=== PATIENT | female | born 1975 | race Hispanic/Latino ===

== ENCOUNTER 2020-02-26 17:28 | Inpatient (IN) | payer SELFPAY ==
[~2020-02-26] VITALS: Ht 162.6 cm; Wt 83.5 kg
[2020-02-26 18:40] LABS: RED BLOOD CELL COUNT(AUTO) 3.93 MIL/uL (4.00-5.50); WHITE BLOOD COUNT (AUTO) 8.6 K/uL (4.8-10.8)
[2020-02-26 18:41] LABS: BASOPHILS % (AUTO) 0.8 % (0.0-5.0); HEMATOCRIT 35.8 % (36-48); LYMPHOCYTES % (AUTO) 21.9 % (21.0-51.0); MEAN CORPUSCULAR HEMOGLOBIN 29.3 pg (27.0-33.0); MEAN CORPUSCULAR HGB CONC 32.1 g/dL (32.0-36.0); MEAN CORPUSCULAR VOLUME 91.1 fL (79-99); MONOCYTES % (AUTO) 8.7 % (3.0-13.0); NEUTROPHILS % (AUTO) 61.4 % (40.0-77.0); PLATELET COUNT (AUTO) 515 K/uL (130-400); RED CELL DISTRIBUTION WIDTH 14.5 % (11.0-15.5)
[2020-02-26 18:49] LABS: APPEARANCE,URINE CLOUDY (CLEAR); BILIRUBIN,URINE SMALL (NEGATIVE); COLOR,URINE RED (YELLOW); GLUCOSE, URINE (UA) NEGATIVE (NEGATIVE); KETONES,URINE NEGATIVE (NEGATIVE); LEUKOCYTE ESTERASE ,URINE MODERATE (NEGATIVE); NITRATE,URINE POSITIVE (NEGATIVE); OCCULT BLOOD,URINE LARGE (NEGATIVE); PH,URINE 6.5 (5.0-8.0); PROTEIN,URINE 100 mg/dL (NEGATIVE); UROBILINOGEN,URINE 0.2 mg/dL (0.2-1.0)
[2020-02-26 19:01] LABS: RBC,URINE TNTC /HPF (0-1)
[2020-02-26 19:03] LABS: BACTERIA,URINE Rare /HPF (None Seen); SQUAMOUS EPITHELIAL CELL,UR Rare /HPF (0-2)
[2020-02-26 19:06] LABS: AMPHET/METH SCREEN,URINE NEGATIVE (NEGATIVE); BARBITURATE SCREEN, URINE NEGATIVE (NEGATIVE); BENZODIAZEPINES SCREEN,URINE POSITIVE (NEGATIVE); CANNABINOID SCREEN,URINE NEGATIVE (NEGATIVE); COCAINE SCREEN,URINE NEGATIVE (NEGATIVE); OPIATE SCREEN,URINE NEGATIVE (NEGATIVE); PHENCYCLIDINE SCREEN,URINE NEGATIVE (NEGATIVE)
[2020-02-26 19:06] LABS: ALCOHOL, BLOOD < 3 mg/dL (0-10); AMMONIA 19 umol/L (11-32); INR 0.94 (0.85-1.15); PARTIAL THROMBOPLASTIN TIME 29.2 SEC (26.3-35.5); PROTHROMBIN TIME 10.2 SEC (9.6-11.6)
[2020-02-26 19:08] LABS: ACETAMINOPHEN < 1 mcg/mL (10-30); SALICYLATE < 2.8 mg/dL (2.8-20.0)
[2020-02-26 19:12] LABS: CARBON DIOXIDE 30 mmol/L (21-32); CHLORIDE 100 mmol/L (101-111); CREATININE 1.1 mg/dL (0.5-1.5); GLOMERULAR FILTR. RATE CALC 57 mL/min (>60); GLUCOSE,RANDOM 131 mg/dL (70-105); POTASSIUM 3.4 mmol/L (3.5-5.1); SODIUM SERUM 137 mmol/L (136-145); UREA NITROGEN, BLOOD 16 mg/dL (7-18)
[2020-02-26 19:28] LABS: ALANINE AMINOTRANSFERASE 80 U/L (12-78); ALBUMIN 3.1 g/dL (3.5-5.0); ASPARTATE AMINOTRANSFERASE 92 U/L (10-37); BILIRUBIN,TOTAL 0.2 mg/dL (0.2-1.0); MYOGLOBIN 71 ng/mL (10-92); TOTAL PROTEIN, SERUM 7.8 g/dL (6.0-8.3); TROPONIN I < 0.04 ng/mL (0.00-0.06)
[2020-02-26 19:29] LABS: CREATINE KINASE, TOTAL 711 U/L (21-232)
[2020-02-26] MEDS ORDERED: CEFTRIAXONE SODIUM 1 GM ONE (20:09)
[2020-02-26] MEDS ORDERED: ONDANSETRON HCL 4 MG/2 ML VIAL IV PRN (21:30)
[2020-02-26] MEDS ORDERED: ACETAMINOPHEN 325 MG TAB PO PRN (21:30)
[2020-02-26] MEDS ORDERED: CEFTRIAXONE SODIUM 1 GM IV SCH (21:30)
[2020-02-26] MEDS ORDERED: HYDRALAZINE HCL 20 MG/ML VIAL IV PRN (21:30)
[2020-02-26] MEDS ORDERED: LACTULOSE 20 GM/30 ML UDCUP PO PRN (21:30)
[2020-02-27] MEDS ORDERED: LIDOCAINE 5% TOPICAL PATCH TP ONE ×2 (01:35→13:55)
[2020-02-27 04:32] LABS: BASOPHILS % (AUTO) 0.7 % (0.0-5.0); EOSINOPHILS % (AUTO) 5.9 % (0.0-8.0); HEMATOCRIT 32.6 % (36-48); LYMPHOCYTES % (AUTO) 22.7 % (21.0-51.0); MEAN CORPUSCULAR HEMOGLOBIN 28.9 pg (27.0-33.0); MEAN CORPUSCULAR HGB CONC 32.2 g/dL (32.0-36.0); MEAN CORPUSCULAR VOLUME 89.8 fL (79-99); MONOCYTES % (AUTO) 6.4 % (3.0-13.0); NEUTROPHILS % (AUTO) 64.1 % (40.0-77.0); PLATELET COUNT (AUTO) 489 K/uL (130-400); RED BLOOD CELL COUNT(AUTO) 3.63 MIL/uL (4.00-5.50); RED CELL DISTRIBUTION WIDTH 14.4 % (11.0-15.5); WHITE BLOOD COUNT (AUTO) 8.3 K/uL (4.8-10.8)
[2020-02-27 04:41] LABS: CREATININE 0.9 mg/dL (0.5-1.5); POTASSIUM 3.9 mmol/L (3.5-5.1)
[2020-02-27] MEDS: LEVETIRACETAM 500 MG TABLET PO SCH ×2 (09:00→20:35)
[2020-02-27] MEDS: LIDOCAINE 5% TOPICAL PATCH TP SCH (09:00)
[2020-02-27] MEDS: ENOXAPARIN SODIUM 40 MG/0.4 ML SYRINGE SQ SCH (09:00)
[2020-02-27] MEDS: FAMOTIDINE 20MG TAB 20 MG TAB PO SCH ×2 (09:00→20:35)
[2020-02-27] MEDS ORDERED: ENOXAPARIN SODIUM 40 MG/0.4 ML SYRINGE SQ ONE (09:35)
[2020-02-27] MEDS ORDERED: FAMOTIDINE 20MG TAB 20 MG TAB ONE (09:35)
[2020-02-27] MEDS ORDERED: LEVETIRACETAM 500 MG TABLET PO ONE (09:36)
[2020-02-27] MEDS ORDERED: ACETAMINOPHEN 325 MG TAB ONE (09:36)
[2020-02-27] MEDS: SODIUM CHLORIDE 0.9% 1000ML 1,000 ML IV SCH (11:15)
[2020-02-27] MEDS: CEFTRIAXONE SODIUM 1 GM IV SCH (11:15)
[2020-02-27] MEDS ORDERED: CEFTRIAXONE SODIUM 1 GM ONE (11:51)
[2020-02-27 14:25] VITALS: BP 108/75
[2020-02-27] MEDS ORDERED: FURO20TA4 PO (17:07)
[2020-02-27 20:00] VITALS: BP 123/76
[2020-02-27] MEDS: ACETAMINOPHEN 325 MG TAB PO PRN (20:35)
[2020-02-28] VITALS: BP 117/82
[2020-02-28] MEDS: SODIUM CHLORIDE 0.9% 1000ML 1,000 ML IV SCH ×2 (01:09→07:15)
[2020-02-28] MEDS: CEFTRIAXONE SODIUM 1 GM IV SCH ×2 (01:10→12:27)
[2020-02-28] MEDS: ACETAMINOPHEN 325 MG TAB PO PRN ×2 (01:18→12:38)
[2020-02-28 03:59] VITALS: BP 113/63
[2020-02-28] MEDS ORDERED: MORPHINE SULFATE 2 MG/ML 1ML SYG IVP ONE (04:30)
[2020-02-28] MEDS ORDERED: MORPHINE SULFATE 2 MG/ML 1ML SYG ONE (05:03)
[2020-02-28 05:22] LABS: EOSINOPHILS % (AUTO) 6.5 % (0.0-8.0); HEMATOCRIT 30.7 % (36-48); LYMPHOCYTES % (AUTO) 29.1 % (21.0-51.0); MEAN CORPUSCULAR HEMOGLOBIN 28.9 pg (27.0-33.0); MEAN CORPUSCULAR HGB CONC 32.6 g/dL (32.0-36.0); MEAN CORPUSCULAR VOLUME 88.7 fL (79-99); MONOCYTES % (AUTO) 7.5 % (3.0-13.0); NEUTROPHILS % (AUTO) 55.6 % (40.0-77.0); PLATELET COUNT (AUTO) 487 K/uL (130-400); RED BLOOD CELL COUNT(AUTO) 3.46 MIL/uL (4.00-5.50); RED CELL DISTRIBUTION WIDTH 14.2 % (11.0-15.5)
[2020-02-28 06:11] LABS: CREATININE 0.9 mg/dL (0.5-1.5); POTASSIUM 3.6 mmol/L (3.5-5.1)
--- NOTE | 2020-02-28 06:11 | NUR ---
PHOTO OF LOWER SPINE INCISION TAKEN AND PLACED IN CHART.
[2020-02-28 08:00] VITALS: BP 108/66
[2020-02-28 11:59] VITALS: BP 123/76
[2020-02-28] MEDS: FAMOTIDINE 20MG TAB 20 MG TAB PO SCH (12:26)
[2020-02-28] MEDS: LEVETIRACETAM 500 MG TABLET PO SCH (12:26)
[2020-02-28] MEDS: LIDOCAINE 5% TOPICAL PATCH TP SCH (12:27)
[2020-02-28] MEDS: ENOXAPARIN SODIUM 40 MG/0.4 ML SYRINGE SQ SCH (12:32)
[2020-02-28] MEDS ORDERED: MEROPENEM 500 MG VIAL IVP SCH (13:00)
--- NOTE | 2020-02-28 17:32 | NUR ---
PATIENT EXPLAINED TO CHARGE NURSE DEWAYNE SHE HAD AN EMERGENCY AND HAD TO LEAVE .PER CHARGE NURSE EXPLAINED TO PATIENT THE RISKS OF LEAVING WITHOUT BEING CLEARED BY THE DOCTOR AND HOSPITAL STAFF , MD NOT RESPONSIBLE ONCE LEAVING HOSPITAL AGAINST MEDICAL ADVISE . PER PATIENT VERBALIZED UNDERSTANDING AND SIGNS AMA PAPER . CHARGE NURSE INFORMED PRIMARY DOCTOR DR HER .IV WAS REMOVED AND PAT[facility] AND PICKED UP BY [facility] .
--- NOTE | 2020-02-28 18:13 | NUR ---
CM NOTE Pt left AMA. No needs per chart review. Addendum: 02/28/20 at 1814 by SMITH BOYLE CM Amended: Links added.
== END 2020-02-28 15:30 | disposition left against medical advice (07) | DRG 100 ==
LOC: EDH 17:28 → EDHIP 17:29 → 3BH 02-27 14:50
PROVIDERS: ADMIT Hospitalist; ATTEND Hospitalist
DX: R56.9 Unspecified convulsions (principal); G93.41 Metabolic encephalopathy; N39.0 Urinary tract infection, site not specified; F17.200 Nicotine dependence, unspecified, uncomplicated; F41.9 Anxiety disorder, unspecified; M79.7 Fibromyalgia; G89.29 Other chronic pain; F19.90 Other psychoactive substance use, unspecified, uncomplicated
CPT/HCPCS: 36415; 70450; 70551; 71045; 80048; 80053; 80305; 81001; 81025; 82140; 82550; 82948; 83605; 83874; 84145; 84484; 85025; 85610; 85730; 87040; 87077; 87088; 87186; 93005; G0378; G0480; G0481; J0696; J1650; J2185

== ENCOUNTER 2020-07-19 01:04 | Emergency (ER) | payer OTHER ==
[~2020-07-19 01:04] MED LIST: FURO20TA4 PO
[2020-07-19 01:50] LABS: BASOPHILS % (AUTO) 0.9 % (0.0-5.0); EOSINOPHILS % (AUTO) 11.5 % (0.0-8.0); HEMATOCRIT 34.2 % (36-48); LYMPHOCYTES % (AUTO) 30.4 % (21.0-51.0); MEAN CORPUSCULAR HEMOGLOBIN 27.5 pg (27.0-33.0); MEAN CORPUSCULAR HGB CONC 31.3 g/dL (32.0-36.0); MEAN CORPUSCULAR VOLUME 87.9 fL (79-99); MONOCYTES % (AUTO) 8.7 % (3.0-13.0); NEUTROPHILS % (AUTO) 48.3 % (40.0-77.0); PLATELET COUNT (AUTO) 393 K/uL (130-400); RED BLOOD CELL COUNT(AUTO) 3.89 MIL/uL (4.00-5.50); RED CELL DISTRIBUTION WIDTH 17.7 % (11.0-15.5); WHITE BLOOD COUNT (AUTO) 8.2 K/uL (4.8-10.8)
[2020-07-19 02:01] LABS: CARBON DIOXIDE 32 mmol/L (21-32); CHLORIDE 103 mmol/L (101-111); GLOMERULAR FILTR. RATE CALC 64 mL/min (>60); GLUCOSE,RANDOM 116 mg/dL (70-105); POTASSIUM 3.6 mmol/L (3.5-5.1); SODIUM SERUM 137 mmol/L (136-145); UREA NITROGEN, BLOOD 16 mg/dL (7-18)
[2020-07-19 02:06] LABS: ALANINE AMINOTRANSFERASE 144 U/L (12-78); ALBUMIN 2.8 g/dL (3.5-5.0); ALCOHOL, BLOOD < 3 mg/dL (0-10); ASPARTATE AMINOTRANSFERASE 121 U/L (10-37); BILIRUBIN,TOTAL 0.1 mg/dL (0.2-1.0); TOTAL PROTEIN, SERUM 7.5 g/dL (6.0-8.3)
[2020-07-19 02:52] LABS: APPEARANCE,URINE Clear (CLEAR); BILIRUBIN,URINE Negative (NEGATIVE); COLOR,URINE Yellow (YELLOW); GLUCOSE, URINE (UA) Negative (NEGATIVE); KETONES,URINE Negative (NEGATIVE); LEUKOCYTE ESTERASE ,URINE Negative (NEGATIVE); NITRATE,URINE Negative (NEGATIVE); OCCULT BLOOD,URINE Nonhemolyzed Trace (NEGATIVE); PH,URINE 5.5 (5.0-8.0); PROTEIN,URINE Negative (NEGATIVE); UROBILINOGEN,URINE 0.2 mg/dL (0.2-1.0)
[2020-07-19 02:59] LABS: AMPHET/METH SCREEN,URINE NEGATIVE (NEGATIVE); BARBITURATE SCREEN, URINE NEGATIVE (NEGATIVE); BENZODIAZEPINES SCREEN,URINE POSITIVE (NEGATIVE); CANNABINOID SCREEN,URINE NEGATIVE (NEGATIVE); COCAINE SCREEN,URINE NEGATIVE (NEGATIVE); OPIATE SCREEN,URINE POSITIVE (NEGATIVE); PHENCYCLIDINE SCREEN,URINE NEGATIVE (NEGATIVE)
[2020-07-19 03:08] LABS: BACTERIA,URINE None Seen /HPF (None Seen); RBC,URINE None Seen /HPF (0-1); WBC,URINE None Seen /HPF (0-1)
== END 2020-07-19 08:00 | disposition home or self-care (01) ==
LOC: EDH 01:04
DX: R60.0 Localized edema (principal); M79.7 Fibromyalgia; F41.9 Anxiety disorder, unspecified; Z98.890 Other specified postprocedural states; Z79.899 Other long term (current) drug therapy
CPT/HCPCS: 36415; 80053; 80305; 81001; 85025